=== PATIENT | male | born 1960 | race Caucasian/White ===

== ENCOUNTER 2018-12-24 08:25 | Emergency (ER) | payer OTHER ==
--- OUTSIDE RECORDS SUMMARY | 2018-12-24 08:36 | XMS REPORT | Continuity of Care Document ---
:1960 External Reference #:[id number] Author Name DEE Stephens (transmitted by agent of provider Yvonne Noe) Address [address] [facility] [address] [place] [address] Care Team Providers Name Role Phone Ranjan Garcia M.D. - Vascular Care Team Information Print Support Specialist Surgery Deborah Warner, Care Team Information Print Support Specialist Unavailable Problems Description No Information Available Social History Type Date Description Comments Sex Unknown Tobacco Use Start: Unknown Current Cigarette Smoker 1 Pack Daily ETOH Use Denies alcohol use Recreational Drug Use Denies Drug Use Tobacco Use Reviewed: 05/08/18 Patient is a current 1 ppd, patient in smoker, smokes every day the process of quitting Smoking Status Reviewed: 05/08/18 Patient is a current 1 ppd, patient in smoker, smokes every day the process of quitting Allergies, Adverse Reactions, Alerts Description No Known Drug Allergies Medications Active Medications SIG Qnty Indications Ordering Provider Date Metoprolol Succinate ER 1 by mouth 90tabs Joseph Oakley, 06/19/2018 every day 25mg Tablets ER 24HR Atorvastatin Calcium Take One Tablet Unknown 40mg By Mouth Every Tablets Day Plavix 1 by mouth Unknown 75mg Tablets every day Acetaminophen needed Unknown 500mg Tablets Bupropion Hydrochloride 1 by mouth Unknown ER (SR) twice a day 150mg Tablets ER 12HR Immunizations Description No Information Available Vital Signs Date Vital Result Comment 11/28/2018 2:45pm Height 66 inches 5'6" Weight 146.12 lb BMI (Body Mass Index) 23.6 kg/m2 BP Systolic Left Arm 104 mmHg BP Diastolic Left Arm 76 mmHg Heart Rate 88 /min 11/14/2018 3:37pm Height 66 inches 5'6" Weight 152.38 lb BMI (Body Mass Index) 24.6 kg/m2 BP Systolic Left Arm 100 mmHg BP Diastolic Left Arm 60 mmHg Heart Rate 72 /min Results Test Date Facility Test Result H/L Range Note Cbcadp 11/14/2018 [facility] WBC. 10.03 x10E3/ uL 4.2-12.0 1 [address] [place] [address] [phone] RBC 4.96 x10E6/uL 4.4-6.0 HGB 16.8 g/dL 13.8-18.0 HCT 51.0 % 39-52 MCV 103.0 fL High 80-98 MCH 33.9 pg High 27-33 MCHC 32.9 g/dL 32-36 RDW 13.6 % 11.2-15.2 PLT 223 x10E3/uL 135-420 MPV 8.1 fL 7.0-12.3 % Doyle 66.9 % 41.0-80.0 %Lym 24.2 % 10.0-45.2 %[place] 6.7 % 2.0-13.0 %Eos 1.7 % 0.0-8.0 %Baso 0.5 % 0.0-3.0 Neut 6.7 x10E3/uL 2.0-8.1 Lymp 2.4 x10E3/uL 0.6-3.1 [place] 0.7 x10E3/uL 0.0-1.0 Eos 0.2 x10E3/uL 0.0-0.6 Baso 0.1 x10E3/uL 0.0-0.2 BMP-Male 11/14/2018 [facility] Glucose 96 mg/dL 74-106 2 [address] [place] [address] [phone] BUN 11 mg/dL 6-20 Creatinine 0.8 mg/dL 0.5-1.3 Sodium 141 mmol/L 136-145 Potassium 4.1 mmol/L 3.5-5.3 Chloride 109 mmol/L High 98-107 Co2 26 mEq/L 20-31 Anion Gap 6 mmol/L Low 7-16 eGFR-male 99 mL/m/1.73m - eGFR-Aa male 120 mL/m/1.73m - 3 Calcium 9.1 mg/dL 8.9-10.5 Laboratory test 11/14/2018 [facility] TSH3 0.773 mIU/ml 0.350-5.500 finding [address] [place] [address] [phone] Free T4 1.02 ng/dL 0.89-1.80 Venipuncture DONE - 1 Labprint and transmitted at 424 11/14/18 kk 2 [facility] and transmitted 11.14.18 5:37pm bab [place] Diabetes [employer] (ADA) Recommended Range is 65-99 mg/dL 3 Normal Kidney Function or Mild Disease GFR >59 mL/min/1.73m2 Chronic Kidney Disease GFR 15-59 mL/min/1.73m2 Renal Failure GFR <15 mL/min/1.73m2 Procedures Date Code Description Status 11/27/2018 00573 ECG Physician Review & Interpretation, Patient Demand Completed 11/26/2018 55324 ECG Physician Review & Interpretation, Patient Demand Completed 11/14/2018 68569 EEG Recording,Connection And Disconnection Completed 11/14/2018 35965 EEG Recording,Connection And Disconnection Completed 11/14/2018 52066 Electrocardiogram Complete Completed 06/13/2018 41789 ECG Physician Review & Interpretation, Patient Demand Completed 06/11/2018 58058 ECG Physician Review & Interpretation, Patient Demand Completed Medical Devices Description No Information Available Encounters Type Date Location Provider Dx Diagnosis Office Visit 11/28/2018 CMP Cardiology AT [facility] Wilbert, R42 Dizziness and 3:00p [place] [employer]OWBOAT CAPTAIN-C giddiness R00.2 Palpitations I49.1 Atrial premature depolarization R00.0 Tachycardia, unspecified [facility] 11[facility]14[facility]2018 3[facility] [place] Wilbert, [employer] CAPTAIN-C giddiness R00.2 Palpitations I25.10 Athscl heart disease of [place] coronary artery w/o ang pctrs I49.1 Atrial premature depolarization Office Visit 06/19/2018 10:45a [facility] AT [facility] I25.10 Athscl heart Kisha Oakley MD disease of [place] coronary artery w/o ang pctrs I49.1 Atrial premature depolarization R42 Dizziness and giddiness Assessments Date Code Description Provider 11/28/2018 R42 Dizziness and giddiness Carleen AtkinsSANDY 11/28/2018 R00.2 Palpitations [facility]/28/2018 I49.1 Atrial premature depolarization Carleen AtkinsDEE 11/28/2018 R00.0 Tachycardia, unspecified Carleen AtkinsSANDY 11/27/2018 R42 Dizziness and giddiness Joseph Oakley MD 11/27/2018 R00.2 Palpitations Joseph Oakley MD 11/26/2018 R42 Dizziness and giddiness Joseph Oakley MD 11/26/2018 R00.2 Palpitations Joseph Oakley MD 11/14/2018 R42 Dizziness and giddiness Joseph Oakley MD 11/14/2018 R42 Dizziness and giddiness Carleendinh AliceaDEE danielle 11/14/2018 R42 Dizziness and giddiness Joseph Oakley MD 11/14/2018 R00.2 Palpitations Joseph Oakley MD 11/14/2018 R00.2 Palpitations Carleendinh AliceaSANDY danielleColten 11/14/2018 I25.10 Atherosclerotic heart disease of [place] Joseph Oakley MD coronary artery without angina pectoris 11/14/2018 I25.10 Atherosclerotic heart disease of [place] Carleen AnibalDEE Del Castillo coronary artery with 11/14/2018 I49.1 Atrial premature depolarization Joseph Oakley MD 11/14/2018 I49.1 Atrial premature depolarization Carleen AliceaDEE danielle 11/14/2018 R00.2 Palpitations [facility] 11/14/2018 R42 Dizziness and giddiness [facility] 11/14/2018 R00.2 Palpitations [facility] 11/14/2018 R42 Dizziness and giddiness [facility] 06/19/2018 I25.10 Atherosclerotic heart disease of [place] Joseph Oakley MD coronary artery with 06/19/2018 I49.1 Atrial premature depolarization Joseph Oakley MD 06/19/2018 R42 Dizziness and giddiness Joseph Oakley MD 06/13/2018 I25.10 Atherosclerotic heart disease of [place] Joseph Oakley MD coronary artery with 06/13/2018 R06.02 Shortness of breath Joseph Oakley MD 06/13/2018 R42 Dizziness and giddiness Joseph Oakley MD 06/11/2018 I25.10 Atherosclerotic heart disease of [place] Joseph Oakley MD coronary artery without angina pectoris 06/11/2018 R06.02 Shortness of breath Joseph Oakley MD 06/11/2018 R42 Dizziness and giddiness Joseph Oakley MD Plan of Treatment Future Appointment(s):03/02/2019 4:00 pm - Joseph Oakley MD at [facility] Cardiology AT Fqhewhrt32/16/2019 - Carleen Atkins, TOWBOAT CAPTAIN-CR42 Dizziness and bfemfeapjY55.2 CpjvyjtvwhoaS51.1 Atrial premature gryzubrguadqavP84.0 Tachycardia, unspecifiedFollow up:3 month follow up with Dr Oakley or call to be seen sooner if needed Functional Status Description No Information Available Mental Status Description No Information Available Referrals Description No Information Available
[2018-12-24 08:40] VITALS: BP 103/64
--- NOTE | 2018-12-24 09:36 | UC ---
Respiratory Complaint HPI - HPI Summary HPI Summary: 58 yo with COPD, continued smoking, with one day history of chills and malaise, with increased cough without production. He does not use albuterol regularly, uses advair about once per day. Chest sore at times, relieves with coughing, mild dyspnea. Hx of CAD with past stent in addition to having a loose left knee joint prosthesis, pending surgical replacement this winter. - History of Current Complaint Chief Complaint: UCGeneralIllness Stated Complaint: THROAT,COUGH,CONGESTION Time Seen by Provider: 12/24/18 09:26 Hx Obtained From: Patient Onset/Duration: Sudden Onset, Lasting Days - 2 Timing: Intermittent Episodes Severity Initially: Moderate Severity Currently: Moderate Pain Intensity: 0 Character: Cough: Productive Aggravating Factors: Exertion Alleviating Factors: Upright Position, Other - not using albuterol and underusing advair Associated Signs And Symptoms: Positive: Dyspnea, URI, Hoarseness - Risk Factors Pulmonary Embolism Risk Factors: Smoking Cardiac Risk Factors: Smoking, CAD Pseudomonas Risk Factors: Chronic Lung Disease Tuberculosis Risk Factors: Negative - Allergies/Home Medications Allergies/Adverse Reactions: Allergies Allergy/AdvReac Type Severity Reaction Status Date / Time No Known Allergies Allergy Verified 12/24/18 08:37 Home Medications: Home Medications Albuterol HFA INHALER* [Ventolin HFA Inhaler*] 2 puff INH DAILY PRN 12/24/18 [ History Confirmed 12/24/18] Combivent Mdi 1 puff INH EVERY OTHER DAY PRN 12/24/18 [History Confirmed ] Metoprolol Succinate XL TAB* [Toprol XL TAB*] 25 mg PO DAILY 12/24/18 [History Confirmed 12/24/18] PMH/Surg Hx/FS Hx/Imm Hx Cardiovascular History: Cardiac Disease Respiratory History: COPD - Surgical History Surgical History: Yes Surgery Procedure, Year, and Place: CARDIAC STENT-2001. LEFT TOTAL KNEE REPLACEMENT. CHOLECYSTECTOMY - Family History Known Family History: Positive: Non-Contributory - Social History Occupation: Employed Full-time Lives: With Family Alcohol Use: None Substance Use Type: None Smoking Status (MU): Heavy Every Day Tobacco Smoker Type: Cigarettes Amount Used/How Often: 1.5 PPD Length of Time of Smoking/Using Tobacco: 42 YRS Have You Smoked in the Last Year: Yes Household Exposure Type: Cigarettes Review of Systems All Other Systems Reviewed And Are Negative: Yes Constitutional: Positive: Chills, Fatigue Eyes: Positive: Negative ENT: Positive: Sore Throat Respiratory: Positive: Shortness Of Breath, Cough Cardiovascular: Negative: Palpitations, Chest Pain Gastrointestinal: Positive: Negative. Negative: Vomiting, Nausea Genitourinary: Positive: Negative Motor: Positive: Other - chronic left knee pain, uses occasional tramadol for relief Musculoskeletal: Positive: Arthralgia Neurological: Positive: Negative Is Patient Immunocompromised?: No Physical Exam Triage Information Reviewed: Yes Appearance: No Pain Distress, Ill-Appearing - looks chronically unwell, not septic, alert, speaks easily Vital Signs: Initial Vital Signs Temp 99 F 12/24/18 08:35 Pulse 85 12/24/18 08:35 Resp 16 12/24/18 08:35 BP 103/64 12/24/18 08:35 Pulse Ox 97 12/24/18 08:35 Eyes: Positive: Conjunctiva Clear ENT: Positive: Pharynx normal, TMs normal Neck: Positive: Supple, Nontender, No Lymphadenopathy Respiratory: Positive: Decreased breath sounds, Expiration - prolonged, no wheezin. Negative: Crackles, Rhonchi, Stridor Cardiovascular: Positive: RRR, No Murmur Abdomen Description: Positive: Nontender, No Organomegaly, Soft Musculoskeletal: Positive: No Edema Neurological Exam: Normal Neurological: Positive: Alert Psychological Exam: Normal Skin Exam: Normal Respiratory Course/Dx - Course Course Of Treatment: Begin doxycycline for treatment of copd exacerbation, increase inhaler use. - Differential Dx/Diagnosis Differential Diagnosis/HQI/PQRI: Asthma, Bronchitis, Exacerbation Of COPD, Laryngitis, Lower Resp Infection Provider Diagnosis: COPD exacerbation Discharge ED - Sign-Out/Discharge Documenting (check all that apply): Patient Departure All imaging exams completed and their final reports reviewed: No Studies - Discharge Plan Condition: Stable Disposition: HOME Prescriptions: DOXYcycline CAP(*) [DOXYcycline 100MG CAP(*)] 100 mg PO BID #20 cap Patient Education Materials: COPD (Chronic Obstructive Pulmonary Disease) (ED) Referrals: Allison Warner NP [Primary Care Provider] - Additional Instructions: Begin doxycyline for treatment of COPD exacerbation. You can take with food, but not within 2 hours of dairy products. Increase advair use to twice daily and use albuterol as needed for shortness of breath. If you worsen, do not see a response to antibiotic treatment in 2 to 3 days, develop a high fever of worsening shortness of breath, please follow up iwith your primary care or here or in the ER - Billing Disposition and Condition Condition: STABLE Disposition: Home
== END 2018-12-24 09:50 | disposition home or self-care (01) ==
LOC: UCCORT 08:25
DX: J44.1 Chronic obstructive pulmonary disease with (acute) exacerbation (principal); F17.210 Nicotine dependence, cigarettes, uncomplicated; I25.10 Atherosclerotic heart disease of native coronary artery without angina pectoris
CPT/HCPCS: 99212; G0463

== ENCOUNTER 2019-02-25 09:51 | Inpatient (IN) | payer OTHER ==
--- OUTSIDE RECORDS SUMMARY | 2019-02-25 09:56 | XMS REPORT | Continuity of Care Document ---
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 Active Problems Provider Date Migraine without aura Deborah Warner FNP Onset: 07/01/2016 Note: Document: 12/30/15 - CT Brain Document: 01/06/16 - Followup: Headache Document: 06/08/16 - Consult Neurology Postconcussion syndrome Deborah Warner FNP Onset: 07/01/2016 Pure hypercholesterolemia Jasmin Roberts ANP Onset: 08/01/2012 Backache Anjelica Knott FNP Onset: 10/14/2012 Chronic obstructive lung disease Anjelica Knott FNP Onset: 03/21/2012 Corns and callosities Deborah Warner FNP Onset: 03/29/2017 Tobacco user Deborah Warner FNP Onset: 04/09/2017 Sinus tachycardia Deborah Warner FNP Onset: 12/04/2018 Note: Document: 11/28/18 - Consult Cardiology - Carleen Anglin Social History Type Date Description Comments Sex Unknown Cigarette Use Pack Years - 35 Tobacco Use Start: Unknown Current Cigarette Smoker 1 Pack Daily Smoking Status Reviewed: 01/22/19 Current Cigarette Smoker 1 Pack Daily ETOH Use Denies alcohol use Tobacco Use Start: Unknown Heavy tobacco smoker 30+ pack year history (more than 10 - currently 1 PPD cigarettes/day) Recreational Drug Use Denies Drug Use Allergies, Adverse Reactions, Alerts Active Allergies Reaction Severity Comments Date Lidocaine Severe 02/25/2018 Inactive Allergies NKDA 04/03/2010 Medications Active Medications SIG Qnty Indications Ordering Date Provider Atorvastatin Calcium Take One Tablet By [facility] 03/17/2018 Mouth Every Day Jenpatelferneel, 40mg Tablets IN STORE REPRESENTATIVE Proair HFA inhale two puffs 17gm J44.9 [facility], 01/06/2016 108(90Base) by mouth every 4 Jenniferleigh, mcg/Act Aerosol hours as needed IN STORE REPRESENTATIVE Albuterol Sulfate nebulized every 6 2units J44.9 [facility], 05/09/2012 hours as needed Saryferneel, (2.5mg/3ML) 0.083% IN STORE REPRESENTATIVE Nebulizer M54.5 F17.200 Combivent Respimat 1 inhalation twice a 12gm Deborah Warner, day IN STORE REPRESENTATIVE 20-100mcg/Act Aerosol Icy Hot ue as needed Unknown 5% Patches Metoprolol Succinate ER one PO qd Joseph Oakley MD 25mg Tablets ER 24HR History Medications Wellbutrin SR take one tablet 60tabs Deborah Warner, 11/25/2018 - 150mg by mouth once IN STORE REPRESENTATIVE 01/22/2019 Tablets ER 12HR daily for 3 days then increase to twice a day Immunizations CPT Code Status Date Vaccine Lot # [id number] Given 01/23/2017 Influenza Virus Vaccine, Quadrivalent, Slit Virus, [id number] Im Use 61847 Given 01/23/2017 Pneumococcal Conjugate Vaccine 13 Valent For [id number] Intramuscular Use 15727 Given 12/23/2015 Influenza Virus Vaccine Split Virus Use For Individual 3Yr Older 30653 Given 11/09/2015 Pneumovax Injection [id number] 73111 Given 07/22/2013 Tdap injection Vital Signs Date Vital Result Comment 01/22/2019 3:25pm BP Systolic 116 mmHg BP Diastolic 68 mmHg Body Temperature 97.4 F Heart Rate 83 /min Respiratory Rate 17 /min Height 66.15 inches 5'6.15" Weight 150.25 lb BMI (Body Mass Index) 24.1 kg/m2 BSA (Body Surface Area) 1.77 m2 [place] body weight in kilograms 65 kg O2 % BldC Oximetry 92 % 06/30/2018 2:07pm BP Systolic Sitting Left Arm 116 mmHg BP Diastolic Sitting Left Arm 74 mmHg Heart Rate 82 /min Respiratory Rate 18 /min Height 66.5 inches 5'6.50" Weight 157.00 lb BMI (Body Mass Index) 25.0 kg/m2 BSA (Body Surface Area) 1.81 m2 [place] body weight in kilograms 66 kg Results Description No Information Available Procedures Date Code Description Status 05/16/2016 20317903 Colonoscopy Completed Medical Devices Description No Information Available Encounters Description No Information Available Assessments Date Code Description Provider 01/22/2019 G31.84 Mild cognitive impairment, so stated Deborah Warner FNP 01/22/2019 Z23 Encounter for immunization Deborah Warner FNP Plan of Treatment 01/22/2019 - Deborah Warner FNPG31.84 Mild cognitive impairment, so statedComments:MMSE within normal limits and normal clock draw is re-assuring, however with strong family history afull evaluation is warranted.Referral:No Doctor [id number] Encounter for immunizationComments:yearly influenza immunization given today Functional Status Functional Condition Comment Date Status Independent with all ADL's Active Glasses Active Independent with all IADL's Active Mental Status Description No Information Available Referrals Refer to Reason for Referral Status Appt Date concern for developing dementia - strong family Hx Created w/PGF, Father and paternal uncle all with alzheimers in their mid to late 60's.
--- NOTE | 2019-02-25 10:02 | ED ---
HPI Chest Pain - HPI Summary HPI Summary: Pt is a 58 y/o M presenting to the ED brought in by EMS for chest pain. STEMI CALLED 0929 with 9 minute ETA by EMS. Pt arrived at 0950. EMS gave 324 ASA and the EKG showed ST elevations in leads II, III, and aVF. Pt states his chest pain started about an hour [employer], and is accompanied by SOB. Hx of cardiac stents , was on Plavix briefly, now pt takes 1mg ASA/day. He has been taking Wellbutrin for the last week, and has gone two days without a cigarette. Pt has a nicotine patch on left arm. Dr. 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 - History of Current Complaint Hx Obtained From: Patient, EMS Onset/Duration: Started Hours Ago, Still Present Timing: Constant, Lasting Hours Initial Severity: Moderate Current Severity: Moderate Chest Pain Location: Mid Sternal Aggravating Factor(s): Nothing Alleviating Factor(s): Nothing Associated Signs and Symptoms: Positive: Chest Pain, Shortness of Breath - Allergy/Home Medications Allergies/Adverse Reactions: Allergies Allergy/AdvReac Type Severity Reaction Status Date / Time No Known Allergies Allergy Verified 12/24/18 08:37 PMH/Surg Hx/FS Hx/Imm Hx Previously Healthy: Yes Endocrine/Hematology History: Reports: Hx Anticoagulant Therapy - remote plavix Denies: Hx Diabetes, Hx Thyroid Disease Cardiovascular History: Reports: Hx Angioplasty - stent placed 1999 in [place] Denies: Hx Hypertension Respiratory History: Reports: Hx Chronic Obstructive Pulmonary Disease (COPD) Denies: Hx Asthma GI History: Denies: Hx Ulcer Musculoskeletal History: Reports: Hx Back Problems - chronic back pain, Hx Gout Sensory History: Reports: Hx Contacts or Glasses Opthamlomology History: Reports: Hx Contacts or Glasses Neurological History: Reports: Hx Headaches - Surgical History Surgery Procedure, Year, and Place: CARDIAC STENT-2001. LEFT TOTAL KNEE REPLACEMENT. CHOLECYSTECTOMY Hx Anesthesia Reactions: No Infectious Disease History: Denies: Hx Clostridium Difficile, Hx Hepatitis, Hx Human Immunodeficiency Virus (HIV), Hx of Known/Suspected MRSA, Hx Shingles, Hx Tuberculosis, Hx Known/ Suspected VRE, Hx Known/Suspected VRSA, History Other Infectious Disease, Traveled Outside the [place] in Last 30 Days - Family History Known Family History: Negative: Diabetes - Social History Alcohol Use: None Hx Substance Use: No Substance Use Type: Reports: None Hx Tobacco Use: Yes - has not smoked in 2 days as of 02/25/19 Smoking Status (MU): Heavy Every Day Tobacco Smoker Type: Cigarettes Amount Used/How Often: 1.5 PPD Length of Time of Smoking/Using Tobacco: 42 YRS Have You Smoked in the Last Year: Yes Review of Systems Constitutional: Negative Positive: Chest Pain Positive: Shortness Of Breath All Other Systems Reviewed And Are Negative: Yes Physical Exam - Summary Physical Exam Summary: Vital Signs Reviewed: Yes A+Ox3, no distress Eyes: Conjunctiva Clear ENT: Hearing grossly normal neck: supple Respiratory: Positive: No respiratory distress, No accessory muscle use Cardiovascular: skin color reflect adequate perfusion Musculoskeletal Exam: ANAYA x 4 without difficulty Neurological: Positive: Alert, ambulatory without difficulty Psychological: Positive: Normal Response To examiner Skin: Positive: no rash, no ecchymosis Triage Information Reviewed: Yes Vital Signs Reviewed: Yes Procedures - Sedation Patient Received Moderate/Deep Sedation with Procedure: No Chest Pain Course/Dx - Course Course Of Treatment: Patient is a 58-year-old gentleman who presents by EMS with an ST elevation LA. EKG prehospital consistent with inferior wall LA. Patient states pain started 1 hour prior to arrival was shortness of breath. Patient was given aspirin by EMS but no other meds given. No IV established prior to arrival. Patient reports discomfort. Attending and team were present on patient arrival. Patient was registered in the department and sent directly to the Software Trainer. - Diagnoses Provider Diagnoses: STEMI (ST elevation myocardial infarction) Discharge ED - Sign-Out/Discharge Documenting (check all that apply): Patient Departure - Discharge Plan Condition: Stable Disposition: ADMITTED TO [facility] - Billing Disposition and Condition Condition: STABLE Disposition: Admitted to [facility] - Attestation Statements Document Initiated by Scribe: Yes Documenting Scribe: Claribel Betancur Provider For Whom Scribe is Documenting (Include Credential): Brittanie Bal MD. Scribe Attestation: Claribel Torrez, tyed for Brittanie Bal MD. on 02/25/19 at 1003. Scribe Documentation Reviewed: Yes Provider Attestation: The documentation as recorded by the scribeClaribel accurately reflects the service I personally performed and the decisions made by Brittanie weaver MD. Status of Scribe Document: Viewed
[2019-02-25] MEDS ORDERED: nitroGLYCERIN DRIP* 25,000 MCG/250 ML BTL ONE (10:14)
[2019-02-25] MEDS ORDERED: Ticagrelor* 90 MG TAB PO ONE (10:19)
[2019-02-25] MEDS ORDERED: fentaNYL* 50 MCG/ML 2 ML VIAL (100 MCG VIAL) ONE (10:22)
[2019-02-25 10:33] LABS: ABS Basophils 0.1 10^3/ul (0-0.2); ABS Eosinophils 0.2 10^3/ul (0-0.6); ABS Lymphocytes 2.1 10^3/ul (1.0-4.8); ABS Monocytes 0.8 10^3/ul (0-0.8); ABS Neutrophils 9.2 10^3/ul (1.5-7.7); Eosinophil % 1.3 %; Hematocrit 54 % (42-52); Hemoglobin 18.2 g/dL (14.0-18.0); Lymphocyte % 16.9 %; Mean Corpuscular HGB Conc 34 g/dL (31-36); Mean Corpuscular Hemoglobin 34 pg (27-31); Mean Corpuscular Volume 103 fL (80-94); Mean Platelet Volume 8.9 fL (7.4-10.4); Platelet Count 194 10^3/uL (150-450); Red Blood Count 5.29 10^6 /uL (4.18-5.48); Red Cell Distribution Width 14 % (10-15); White Blood Count 12.3 10^3/uL (3.5-10.8)
[2019-02-25 10:38] LABS: Activated Partial Thrombo Time 44.8 seconds (26.0-38.0); INR 0.91 (0.82-1.09)
[2019-02-25 11:03] LABS: CO2 Carbon Dioxide 18 mmol/L (22-32); Chloride 106 mmol/L (101-111); Sodium 134 mmol/L (135-145)
[2019-02-25] MEDS ORDERED: NitroPRUSSide* 25 MG/ML 2 ML VIAL IV ONE (11:08)
[2019-02-25] MEDS ORDERED: Norepinephrine VIAL* 1 MG/ML 4 ML VIAL ONE (11:08)
[2019-02-25 11:09] LABS: BUN/Creatinine Ratio 9.9 (8-20); Blood Urea Nitrogen 10 mg/dL (6-24); EGFR African American 91.5 (>60); EGFR Non-African American 75.6 (>60); Glucose 103 mg/dL (70-100)
[2019-02-25 11:10] LABS: Anion Gap 10 mmol/L (2-11)
[2019-02-25 11:20] LABS: Troponin I 0.03 ng/mL (<0.04)
[2019-02-25] MEDS ORDERED: Nitroglycerin TAB 0.4 MG* 0.4 MG TAB SL PRN (11:52)
[2019-02-25] MEDS ORDERED: Albuterol HFA INHALER* 8 gm MDI INH PRN (11:57)
[2019-02-25] MEDS ORDERED: Albuterol 2.5 MG/3 ML NEB.SOL* (0.083%) INH PRN (11:57)
[2019-02-25] MEDS ORDERED: Metoprolol Tartrate TAB* 25 MG PO SCH (12:00)
[2019-02-25] MEDS: Nicotine PATCH 21 MG/24 HR* PATCH TRANSDERM SCH (12:24)
[2019-02-25] MEDS: NS 0.9% 1000 ML** 1,000 ML IV SCH ×2 (12:25→14:26)
--- NOTE | 2019-02-25 12:33 | HP ---
HISTORY AND PHYSICAL: DATE OF ADMISSION: 02/25/19 ATTENDING PHYSICIAN: Dr. Paula Santamaria, Cardiology.* (DICTATED BY MAYE YANEZ NP) PRIMARY CARE PROVIDER: SANDY King, with [facility] in [place], [place]. PRIMARY FIBER OPTICS SUPERVISOR: None. CHIEF COMPLAINT: Sudden onset substernal chest pain radiating down left arm, started 1 hour prior to arrival. HISTORY OF PRESENT ILLNESS: This is a pleasant 58-year-old male patient with a notable history of coronary artery disease with prior intervention to LAD distantly in 2001, ongoing tobacco abuse, hyperlipidemia. The patient states that he has been in his usual state of health. He has been noticing progressive dyspnea on exertion over the course of the last 6 months. He contributed this to his ongoing tobacco use. Apparently, he smokes a pack and a half a day; however, 2 days ago, he decided that because of his dyspnea on exertion, he would start reducing his tobacco use. This morning around 9 a.m. 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 The patient states that he did not have nitroglycerin to use. He went into his place of employment office and asked them to call 911. EMS evaluated the patient. He had an abnormal ECG consistent with an inferior STEMI. He was given 325 mg of aspirin and taken to [facility] where he was seen emergently in the emergency department by Dr. Paula Santamaria. Repeat ECG at that time revealed ST segment elevation in inferior leads with reciprocal change in V1 through V3, aVR, and aVL. The patient was [place] urgently [place] where he underwent a drug-eluting stent placement to his dominant left circumflex. He is currently chest pain free and was just transferred to the ICU. He denies any other recent hospitalizations or symptoms at this time. He states that his last ischemic evaluation prior to presentation today was remotely in 2004. Last echocardiogram unknown. PAST MEDICAL HISTORY: 1. Coronary artery disease. 2. Ongoing tobacco abuse. 3. Hyperlipidemia. 4. 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 5. COPD. 6. Diverticulitis. PAST SURGICAL HISTORY: 1. Prior remote LAD stenting. 2. Left knee surgery. HOME MEDICATIONS: According to his primary physician: 1. Lipitor 40 mg p.o. q.h.s. 2. ProAir as directed. 3. Albuterol as directed. 4. Metoprolol 25 mg a day. 5. Combivent as directed. ALLERGIES: Listed include LIDOCAINE, unknown reaction. FAMILY HISTORY: Noncontributory. SOCIAL HISTORY: The patient is , lives at home with his . 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 Reports smoking a pack and a half of cigarettes a day for the last 30 plus years. Denies alcohol use or illegal drug use. REVIEW OF SYSTEMS: All systems have been reviewed and otherwise negative except as above mentioned in the HPI. PHYSICAL EXAMINATION GENERAL: The patient is status post left heart catheterization, resting in bed in the ICU, appears in no apparent distress. He is alert and oriented x3, cooperative with the examination. HEENT: Head is atraumatic, normocephalic. Oral mucosa is moist. Tongue is midline. NECK: Supple. Trachea midline. No JVD. No carotid bruits. LUNGS: Auscultated posteriorly. No evidence of adventitious breath sounds. Respirations are unlabored. CARDIAC: Normal S1, S2. Regular rate and rhythm. No murmur, rub, or gallop noted. /GI: Abdomen is soft, nontender, nondistended. Normoactive bowel sounds x4. No hepatomegaly. EXTREMITIES: Right radial access has TR band placed and is in an immobilizer. Left radial pulse 3+. Bilateral dorsalis pedis pulses 2+. SKIN: Intact. No evidence of jaundice, rashes, or ecchymosis appreciated. DIAGNOSTIC STUDIES/LAB DATA: White count 12.3, hemoglobin 18.2, hematocrit 54 , platelets 194. INR 0.91. Sodium 134, potassium to be determined, creatinine 1.01. Troponin #1 is 0.03. ECG obtained by EMS: Sinus rhythm, rate [address] segment elevation in lead II , III, aVF with reciprocal changes noted in V1 through V3, aVR and aVL. ASSESSMENT AND PLAN: 1. Status post inferior ST-elevation myocardial infarction. The patient underwent successful drug-eluting stent placement to dominant left circumflex. The patient is chest pain free at this time. He presented within 1 hour of onset of symptoms. We will cycle cardiac enzymes. We will update echo in the next 24 to 48 hours. The patient is to be admitted to the ICU for close observation. He is on aspirin 81 mg a day in combination with Brilinta 90 mg p.o. b.i.d. He will need uninterrupted dual antiplatelet therapy for 12 months ' time given presentation with ST-elevation myocardial infarction. He was historically on metoprolol therapy and Lipitor therapy. We will initiate high- intensity statin therapy and follow closely. 2. History of ongoing tobacco abuse. Reinforced importance of smoking cessation for the patient's overall cardiovascular health. The patient seems engaged and willing to quit. We will prescribe nicotine patch. 3. History of hyperlipidemia. Goal LDL less than 70 due to above. On Lipitor 40 mg p.o. q.h.s. at home. We will increase dose to 80 mg p.o. q.h.s. We will need repeat fasting lipid panel and liver function tests in 4 to 6 weeks' time. 4. History of hypertension. Historically, on metoprolol therapy. Goal blood pressure less than 130/80 given age. 5. Disposition: Pending course. Dr. Paula Santamaria has personally seen and examined the patient and agrees with the above assessment and plan. MAYE YANEZ NP [id number]/[facility] #: [id number] REZA
[2019-02-25 12:55] LABS: Creatine Kinase 1066 U/L (10-223); Potassium 4.7 mmol/L (3.5-5.0)
[2019-02-25 13:00] LABS: CKMB ng/mL 240.9 ng/mL (0.6-6.3)
[2019-02-25 13:03] LABS: Troponin I 15.12 ng/mL (<0.04)
[2019-02-25] MEDS ORDERED: NS 0.9% 500 ML* 500 ML IV ONE (14:05)
[2019-02-25] MEDS ORDERED: Magnesium Sulfate 1 GM IV* 1 GM/100 ML BAG IV ONE (15:41)
[2019-02-25] MEDS ORDERED: NS 0.9% 500 ML* @ Wide Open(Bolus) 500ml IV ONE (16:00)
[2019-02-25] MEDS ORDERED: Norepinephrine 16MCG/ML IVPRE* 4,000 MCG/250 ML BAG IV ONE (16:55)
[2019-02-25] MEDS: Atorvastatin* 80 MG TAB PO SCH (17:10)
[2019-02-25 18:29] LABS: Creatine Kinase 1693 U/L (10-223)
[2019-02-25 18:35] LABS: Troponin I 60.27 ng/mL (<0.04)
[2019-02-25 18:48] LABS: CKMB ng/mL > 300.0 ng/mL (0.6-6.3)
[2019-02-25] MEDS: Norepinephrine 16MCG/ML IVPRE* 4,000 MCG/250 ML BAG IV SCH (19:00)
[2019-02-25] MEDS: Albuterol/Ipratropium NEB.SOL* Albuterol 2.5 MG/Ipratropium 0.5 MG 3 ML INH SCH (19:18)
[2019-02-25] MEDS: Ticagrelor* 90 MG TAB PO SCH (20:36)
[2019-02-25] MEDS: Nicotine Patch Removal NOTE PATCH OFF SCH (21:17)
[2019-02-25] MEDS ORDERED: Melatonin 3 MG TAB PO PRN (23:31)
[2019-02-26 01:14] LABS: CKMB ng/mL 197.4 ng/mL (0.6-6.3); Troponin I 19.16 ng/mL (<0.04)
[2019-02-26 01:21] LABS: Creatine Kinase 965 U/L (10-223)
[2019-02-26] MEDS: Norepinephrine 16MCG/ML IVPRE* 4,000 MCG/250 ML BAG IV SCH (04:09)
[2019-02-26 06:05] LABS: BUN/Creatinine Ratio 10.1 (8-20); Calcium 8.6 mg/dL (8.6-10.3); EGFR African American 121.5 (>60); EGFR Non-African American 100.4 (>60); Potassium 4.1 mmol/L (3.5-5.0)
[2019-02-26] MEDS: Aspirin 81 mg CHEW TAB* 81 MG TAB.CHEW PO SCH (07:43)
[2019-02-26] MEDS: Ticagrelor* 90 MG TAB PO SCH ×2 (07:43→21:30)
[2019-02-26] MEDS: Nicotine PATCH 21 MG/24 HR* PATCH TRANSDERM SCH (07:43)
[2019-02-26] MEDS: Albuterol/Ipratropium NEB.SOL* Albuterol 2.5 MG/Ipratropium 0.5 MG 3 ML INH SCH ×2 (08:00→22:24)
--- NOTE | 2019-02-26 09:15 | PN ---
<Vanessa Ballesteros - Last Filed: 02/26/19 09:07> Subjective Date of Service: 02/26/19 - s/p Inferior STEMI with PCI to dominant Lcx. Interval History: Patient developed hypotension last night. Levophed was started but has since been discontinued. He is asymptomatic. Denies dizziness, lightheadedness, SOB, chest pain or palpitations. Denies right radial access site pain. Manual BP was 110/78, automatic machine recorded SBP 83. It appears automated BP is not accurate. Medications Active Medications: Albuterol (Ventolin 2.5 Mg/3 Ml Neb.Chloé*) 2.5 mg INH Q6H PRN PRN Reason: SOB/WHEEZING Albuterol (Ventolin Hfa Inhaler*) 2 puff INH Q4HR PRN PRN Reason: SOB/WHEEZING Albuterol/Ipratropium (Duoneb (Albuterol 2.5 Mg/Ipratropium 0.5 Mg)) 1 neb INH RT.BID [facility]; Protocol Last Admin: 02/26/19 08:00 Dose: 1 neb Aspirin (Aspirin 81 Mg Chew Tab*) 81 mg PO DAILY [facility] Last Admin: 02/26/19 07:43 Dose: 81 mg Atorvastatin Calcium (Lipitor*) 80 mg PO 1700 [facility] Last Admin: 02/25/19 17:10 Dose: 80 mg Norepinephrine Bitartrate (Levophed 16 Mcg/Ml Premix*) 4,000 mcg in 250 mls @ 0 mls/hr IV PER RATE [facility]; Protocol Last Admin: 02/26/19 04:09 Dose: 15 mls/hr Melatonin (Melatonin) 3 mg PO BEDTIME PRN PRN Reason: INSOMNIA Last Admin: 02/26/19 00:17 Dose: 3 mg Nicotine (Nicotine Patch 21 Mg/24 Hr*) 1 patch TRANSDERM DAILY [facility] Last Admin: 02/26/19 07:43 Dose: 1 patch Nitroglycerin (Nitroglycerin Tab 0.4 Mg*) 0.4 mg SL Q5M PRN PRN Reason: ANGINA Pharmacy Profile Note (Nicotine Patch Removal Note*) 1 note PATCH OFF 2100 [facility] Last Admin: 02/25/19 21:17 Dose: 1 note Ticagrelor (Brilinta*) 90 mg PO BID [facility] Last Admin: 02/26/19 07:43 Dose: 90 mg Objective Vital Signs: Temp Pulse Resp BP Pulse Ox 99.5 F 70 19 104/66 97 02/26/19 07:59 02/26/19 08:01 02/26/19 08:01 02/26/19 07:46 02/26/19 08:01 Oxygen Devices in Use Now: None Appearance: sitting upright in bed, NAD, A+ O X3 Ears/Nose/Mouth/Throat: NL Teeth, Lips, Gums, Clear Oropharnyx, Mucous Membranes Moist Neck: NL Appearance and Movements; NL JVP, Trachea Midline Respiratory: Symmetrical Chest Expansion and Respiratory Effort, Clear to Auscultation Cardiovascular: - - Normal S1, S2. RRR no murmur, gallop or rub. Abdominal: NL Sounds; No Tenderness; No Distention, No Hepatosplenomegaly Extremities: No Edema, - - right radial access site is intact, non tender with palpation, no palpable thrill, no hematoma. 3+ right radial pulse. Neurological: Alert and Oriented x 3 Lines/Tubes/Other Access: Clean, Dry and Intact Peripheral IV Laboratory Results: 02/25/19 10:12 02/26/19 05:00 INR (Anticoag Therapy) 0.91 (0.82-1.09) 02/25/19 10:12 APTT 44.8 seconds (26.0-38.0) H 02/25/19 10:12 CK-MB (CK-2) 197.4 ng/mL (0.6-6.3) H 02/26/19 00:00 02/25/19 02/25/19 02/25/19 10:12 12:29 17:50 Troponin I 0.03 15.12 H* 60.27 H* 02/26/19 00:00 Troponin I 19.16 H* Laboratory Results - last 24 hr 02/25/19 02/25/19 02/25/19 10:12 10:12 10:12 WBC 12.3 H RBC 5.29 Hgb 18.2 H Hct 54 H MCV 103 H MCH 34 H MCHC 34 RDW 14 Plt Count 194 MPV 8.9 Neut % (Auto) 74.4 Lymph % (Auto) 16.9 Mccreary % (Auto) 6.7 Eos % (Auto) 1.3 Baso % (Auto) 0.7 Absolute Neuts (auto) 9.2 H Absolute Lymphs (auto) 2.1 Absolute Monos (auto) 0.8 Absolute Eos (auto) 0.2 Absolute Basos (auto) 0.1 Absolute Nucleated RBC 0.0 Nucleated RBC % 0.0 INR (Anticoag Therapy) 0.91 APTT 44.8 H POC Activ Clotting Time Sodium 134 L Potassium TNP Chloride 106 Carbon Dioxide 18 L Anion Gap 10 BUN 10 Creatinine 1.01 Est GFR ( Amer) 91.5 Est GFR (Non-Af Amer) 75.6 BUN/Creatinine Ratio 9.9 Glucose 103 H Calcium 10.0 Magnesium Total Creatine Kinase CK-MB (CK-2) Troponin I 0.03 02/25/19 02/25/19 02/25/19 10:30 12:29 15:18 WBC RBC Hgb Hct MCV MCH MCHC RDW Plt Count MPV Neut % (Auto) Lymph % (Auto) Mccreary % (Auto) Eos % (Auto) Baso % (Auto) Absolute Neuts (auto) Absolute Lymphs (auto) Absolute Monos (auto) Absolute Eos (auto) Absolute Basos (auto) Absolute Nucleated RBC Nucleated RBC % INR (Anticoag Therapy) APTT POC Activ Clotting Time 264 Sodium Potassium 4.7 Chloride Carbon Dioxide Anion Gap BUN Creatinine Est GFR ( Amer) Est GFR (Non-Af Amer) BUN/Creatinine Ratio Glucose Calcium Magnesium TNP 1.8 L Total Creatine Kinase 1066 H CK-MB (CK-2) 240.9 H Troponin I 15.12 H* 02/25/19 02/26/19 02/26/19 17:50 00:00 05:00 WBC RBC Hgb Hct MCV MCH MCHC RDW Plt Count MPV Neut % (Auto) Lymph % (Auto) Mccreary % (Auto) Eos % (Auto) Baso % (Auto) Absolute Neuts (auto) Absolute Lymphs (auto) Absolute Monos (auto) Absolute Eos (auto) Absolute Basos (auto) Absolute Nucleated RBC Nucleated RBC % INR (Anticoag Therapy) APTT POC Activ Clotting Time Sodium 137 Potassium 4.1 Chloride 112 H Carbon Dioxide 20 L Anion Gap 5 BUN 8 Creatinine 0.79 Est GFR ( Amer) 121.5 Est GFR (Non-Af Amer) 100.4 BUN/Creatinine Ratio 10.1 Glucose 99 Calcium 8.6 Magnesium 2.0 Total Creatine Kinase 1693 H 965 H CK-MB (CK-2) > 300.0 H 197.4 H Troponin I 60.27 H* 19.16 H* Diagnostic Imaging: [facility] 02/25/2019; report not dictated yet. He underwent successful PETE( 3.0x16mm Synergy) / Dominant Lcx. EKG Data: 02/26/2019; Sinus rhythm rate 71 Telemetry; sinus rhythm rate 80-90s with PVCs rare couplets, NSVT ( 4 beats) Assessment/Plan #1 Inferior STEMI 02/25/2019 s/p PETE 3.0x16mm PETE to dominant Lcx. Troponin peaked on 02/25/2019 at 60. He presented within hour of onset of symptoms. No recurrent chest pain. On ASA 81/day, Brilinta 90mg PO BID and Lipitor 80QHS. Manual SBP 110/78. Will discontinue Levophed. It appears automated machine was under assessing BP given manual was 110/78 and automated SBP was 83. Will re evaluate starting Lopressor depending on clinical course. Patient up and ambulating will likely transfer to telemetry this afternoon as long as clinically stable to do so. Will check echo 02/27/2019. #2 h/o HLD; goal LDL < 70. He reports non compliance with outpatient medications including Lipitor. Will update lipid panel. Continue Lipitor 80QHS. #3 h/o tobacco abuse. Continue Nicotine patch. He is interested in quitting thus , will need patch prescribed upon discharge. #4 h/o HTN; Historically on Toprol 25mg/day however, he has been non compliant with outpatient medications. Will re evaluate starting bblocker. It appears automated machine was under assessing BP given manual BP was 110/78 #5 disposition pending course. Will d/w Dr. Santamaria. Patient full code. Attending: Paula Santamaria <Paula Santamaria - Last Filed: 02/26/19 11:21> Medications Active Medications: Albuterol (Ventolin 2.5 Mg/3 Ml Neb.Chloé*) 2.5 mg INH Q6H PRN PRN Reason: SOB/WHEEZING Albuterol (Ventolin Hfa Inhaler*) 2 puff INH Q4HR PRN PRN Reason: SOB/WHEEZING Albuterol/Ipratropium (Duoneb (Albuterol 2.5 Mg/Ipratropium 0.5 Mg)) 1 neb INH RT.BID [facility]; Protocol Last Admin: 02/26/19 08:00 Dose: 1 neb Aspirin (Aspirin 81 Mg Chew Tab*) 81 mg PO DAILY [facility] Last Admin: 02/26/19 07:43 Dose: 81 mg Atorvastatin Calcium (Lipitor*) 80 mg PO 1700 [facility] Last Admin: 02/25/19 17:10 Dose: 80 mg Melatonin (Melatonin) 3 mg PO BEDTIME PRN PRN Reason: INSOMNIA Last Admin: 02/26/19 00:17 Dose: 3 mg Nicotine (Nicotine Patch 21 Mg/24 Hr*) 1 patch TRANSDERM DAILY [facility] Last Admin: 02/26/19 07:43 Dose: 1 patch Nitroglycerin (Nitroglycerin Tab 0.4 Mg*) 0.4 mg SL Q5M PRN PRN Reason: ANGINA Pharmacy Profile Note (Nicotine Patch Removal Note*) 1 note PATCH OFF 2100 [facility] Last Admin: 02/25/19 21:17 Dose: 1 note Ticagrelor (Brilinta*) 90 mg PO BID [facility] Last Admin: 02/26/19 07:43 Dose: 90 mg Objective Vital Signs: Temp Pulse Resp BP Pulse Ox 99.5 F 83 22 99/68 97 02/26/19 07:59 02/26/19 10:30 02/26/19 10:30 02/26/19 10:30 02/26/19 10:30 Laboratory Results: 02/25/19 10:12 02/26/19 05:00 INR (Anticoag Therapy) 0.91 (0.82-1.09) 02/25/19 10:12 APTT 44.8 seconds (26.0-38.0) H 02/25/19 10:12 CK-MB (CK-2) 197.4 ng/mL (0.6-6.3) H 02/26/19 00:00 Triglycerides 93 mg/dL 02/26/19 05:00 Cholesterol 120 mg/dL 02/26/19 05:00 LDL Cholesterol 69 mg/dL 02/26/19 05:00 HDL Cholesterol 32.6 mg/dL 02/26/19 05:00 02/25/19 02/25/19 02/25/19 10:12 12:29 17:50 Troponin I 0.03 15.12 H* 60.27 H* 02/26/19 00:00 Troponin I 19.16 H* Assessment/Plan As above, but will hold on ECHO as had preserved EF on LV gram.
[2019-02-26 09:45] LABS: HDL Cholesterol 32.6 mg/dL
[2019-02-26] MEDS: Atorvastatin* 80 MG TAB PO SCH (16:57)
[2019-02-26] MEDS: Nicotine Patch Removal NOTE PATCH OFF SCH (21:30)
[2019-02-27] MEDS: Albuterol/Ipratropium NEB.SOL* Albuterol 2.5 MG/Ipratropium 0.5 MG 3 ML INH SCH ×2 (08:11→20:51)
[2019-02-27] MEDS: Aspirin 81 mg CHEW TAB* 81 MG TAB.CHEW PO SCH (09:27)
[2019-02-27] MEDS: Nicotine PATCH 21 MG/24 HR* PATCH TRANSDERM SCH (09:27)
[2019-02-27] MEDS: Ticagrelor* 90 MG TAB PO SCH ×2 (09:28→20:47)
--- NOTE | 2019-02-27 09:37 | PN ---
Subjective Date of Service: 02/27/19 - s/p Inferior STEMi with PCI to dominant Lcx Interval History: No recurrent chest pain since intervention to dominant Lcx on 02/26/2019. Offers no complaints. Denies SOB, palpitations, sensation of heart racing. edema. Has been up and ambulating. He reports his roommate kept him up all night talking to himself otherwise offers no complaints. Medications Active Medications: Albuterol (Ventolin 2.5 Mg/3 Ml Neb.Chloé*) 2.5 mg INH Q6H PRN PRN Reason: SOB/WHEEZING Last Admin: 02/26/19 23:22 Dose: 2.5 mg Albuterol (Ventolin Hfa Inhaler*) 2 puff INH Q4HR PRN PRN Reason: SOB/WHEEZING Albuterol/Ipratropium (Duoneb (Albuterol 2.5 Mg/Ipratropium 0.5 Mg)) 1 neb INH RT.BID [facility]; Protocol Last Admin: 02/27/19 08:11 Dose: 1 neb Aspirin (Aspirin 81 Mg Chew Tab*) 81 mg PO DAILY [facility] Last Admin: 02/27/19 09:27 Dose: 81 mg Atorvastatin Calcium (Lipitor*) 80 mg PO 1700 [facility] Last Admin: 02/26/19 16:57 Dose: 80 mg Melatonin (Melatonin) 3 mg PO BEDTIME PRN PRN Reason: INSOMNIA Last Admin: 02/26/19 00:17 Dose: 3 mg Nicotine (Nicotine Patch 21 Mg/24 Hr*) 1 patch TRANSDERM DAILY [facility] Last Admin: 02/27/19 09:27 Dose: 1 patch Nitroglycerin (Nitroglycerin Tab 0.4 Mg*) 0.4 mg SL Q5M PRN PRN Reason: ANGINA Pharmacy Profile Note (Nicotine Patch Removal Note*) 1 note PATCH OFF 2100 [facility] Last Admin: 02/26/19 21:30 Dose: 1 note Ticagrelor (Brilinta*) 90 mg PO BID [facility] Last Admin: 02/27/19 09:28 Dose: 90 mg Objective Vital Signs: Temp Pulse Resp BP Pulse Ox 97.9 F 86 18 97/60 99 02/27/19 07:37 02/27/19 08:12 02/27/19 08:12 02/27/19 07:37 02/27/19 08:12 Oxygen Devices in Use Now: None Appearance: sitting upright in bed, NAD, A+ O X3 Ears/Nose/Mouth/Throat: NL Teeth, Lips, Gums, Clear Oropharnyx, Mucous Membranes Moist Neck: NL Appearance and Movements; NL JVP, Trachea Midline Respiratory: Symmetrical Chest Expansion and Respiratory Effort, Clear to Auscultation Cardiovascular: - - Normal S1, S2. RRR no murmur, gallop or rub. Abdominal: NL Sounds; No Tenderness; No Distention, No Hepatosplenomegaly Extremities: No Edema, - - right radial access site is intact, non tender with palpation, no palpable thrill, no hematoma. 3+ right radial pulse. Neurological: Alert and Oriented x 3 Lines/Tubes/Other Access: Clean, Dry and Intact Peripheral IV Laboratory Results: 02/25/19 10:12 02/26/19 05:00 INR (Anticoag Therapy) 0.91 (0.82-1.09) 02/25/19 10:12 APTT 44.8 seconds (26.0-38.0) H 02/25/19 10:12 CK-MB (CK-2) 197.4 ng/mL (0.6-6.3) H 02/26/19 00:00 Triglycerides 93 mg/dL 02/26/19 05:00 Cholesterol 120 mg/dL 02/26/19 05:00 LDL Cholesterol 69 mg/dL 02/26/19 05:00 HDL Cholesterol 32.6 mg/dL 02/26/19 05:00 02/25/19 02/25/19 02/25/19 10:12 12:29 17:50 Troponin I 0.03 15.12 H* 60.27 H* 02/26/19 00:00 Troponin I 19.16 H* Laboratory Results - last 24 hr 02/26/19 05:00 Triglycerides 93 Cholesterol 120 LDL Cholesterol 69 HDL Cholesterol 32.6 Diagnostic Imaging: [facility] 02/25/2019; report not dictated yet. He underwent successful PETE( 3.0x16mm Synergy) / Dominant Lcx. EKG Data: 02/26/2019; Sinus rhythm rate 71 02/27/2019; Sinus rate 93 with new inferior TWI c/w recent PA. + PVCs Telemetry; sinus rhythm rate 80-90s with PVCs rare couplets, NSVT ( 4 beats) Assessment/Plan #1 s/p inferior STEMI underwent successful PETE/ dominant Lcx 02/25/2019. No recurrent c/o chest pain. Troponin peaked at 60 on 02/25/2019. today's ECG reviewed there are new inferior TWI c/w recent infarct. He is on ASA 81/day in combination with Brilinta 90mg Po BID. He will need uninterrupted DAPT x12 months given presentation was STEMI. He is tolerating Brilinta today now that he is drinking caffeine before taking medication. Not on bblocker due to hypotension. On Lipitor 80QHS. #2 Tachycardia; LVEF was normal on LV gram. He is not anemia. Denies ETOH use, is not withdrawing from bblocker therapy. Not clear as to why resting HR is 90- 110. Will update TFTs to r/o thyroid disease. He is afebrile and denies fever, chills, dysuria. Of note he has polycythemia noted on CBC he has a h/o COPD however, he appears otherwise well. #3 h/o HLD; On lipitor 80 QHS. LDL this admit 69 ( reflective of not being on statin prior) Will need repeat FLP/LFt in 6-8 weeks. #4 Disposition pending course. Will await TFTs.Patient full code. Attending: Paula Santamaria
[2019-02-27 10:30] LABS: TSH (Thyroid Stimulating Horm) 0.91 mcIU/mL (0.34-5.60)
[2019-02-27 10:32] LABS: Free T3 3.3 pg/mL (2.5-3.9)
[2019-02-27 10:35] LABS: Free T4 1.03 ng/dL (0.61-1.12)
[2019-02-27 11:33] LABS: ABS Eosinophils 0.1 10^3/ul (0-0.6); ABS Lymphocytes 1.6 10^3/ul (1.0-4.8); ABS Monocytes 0.8 10^3/ul (0-0.8); ABS Neutrophils 8.7 10^3/ul (1.5-7.7); Eosinophil % 0.5 %; Hematocrit 43 % (42-52); Hemoglobin 14.5 g/dL (14.0-18.0); Lymphocyte % 13.9 %; Mean Corpuscular HGB Conc 34 g/dL (31-36); Mean Corpuscular Hemoglobin 35 pg (27-31); Mean Corpuscular Volume 101 fL (80-94); Mean Platelet Volume 9.7 fL (7.4-10.4); Nucleated Red Blood Cells % 0.1; Platelet Count 156 10^3/uL (150-450); Red Cell Distribution Width 13 % (10-15); White Blood Count 11.2 10^3/uL (3.5-10.8)
[2019-02-27] MEDS ORDERED: Metoprolol Tartrate IV* 1 MG/ML 5 ML VIAL IV PRN (14:11)
[2019-02-27] MEDS ORDERED: NS 0.9% 500 ML* 500 ML IV ONE ×2 (14:27→14:58)
[2019-02-27] MEDS: Metoprolol Tartrate IV* 1 MG/ML 5 ML VIAL IV PRN ×2 (14:40→14:51)
--- NOTE | 2019-02-27 14:40 | DS ---
DISCHARGE SUMMARY: DATE OF ADMISSION: 02/25/19 TENTATIVE DATE OF DISCHARGE: Pending no complications, 02/28/19 ATTENDING PHYSICIAN: Dr. Palua Santamaria.* (DICTATED BY MAYE YANEZ NP) PRIMARY PHYSICIAN: SANDY King with [facility]. ADMITTING DIAGNOSES: 1. Acute inferior ST-segment elevation, status post drug eluting stent placement to dominant left circumflex, troponin peaked at 60.27 on 02/25/19. LVEF preserved on LV gram with left heart catheterization, on aspirin, Brilinta , and statin therapy, no beta-blockade therapy due to hypertension. Please note the patient will need uninterrupted dual antiplatelet therapy for 12 months ' time with presentation with ST-elevation myocardial infarction. 2. Hyperlipidemia, now on high intensity statin therapy, LDL this admit 69, will need repeat fasting lipid panel, liver function test in 6 to 8 week's time. 3. Hypertension with inappropriate tachycardia. Thyroid function was normal. The patient is not anemic, vitamin B12 testing was updated. LVEF is preserved, it could be secondary to above #1, would likely benefit from outpatient ambulatory monitoring. We will address in followup. 4. History of chronic obstructive pulmonary disease, on albuterol as needed. Recommend to follow up with PCP. PROCEDURES PERFORMED: The patient underwent left heart catheterization with Dr. Paula Santamaria on 02/25/19. At this time, left catheterization report has not been transcribed, however, he underwent successful drug eluting stent placement to dominant left circumflex. For further information, please review dictated report. COMPLICATIONS: None thus far. 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 This occurred while at work. He had his colleagues called 911. [place] [facility]-segment elevation in inferior leads with reciprocal changes in anterior leads. A code heart was called and the patient was evaluated emergently. While in the emergency department, decision was made to take the patient urgently to [facility] where he underwent successful drug-eluting stent placement to left circumflex. Post procedure, he was transferred to the ICU where he was monitored on telemetry. The patient did develop hypotension postoperatively, which was treated with temporary period of Levophed therapy, which was discontinued on 02/26/19. He was asymptomatic. Systolic blood pressures have been ranging between 86 and 100. Again, he is not symptomatic. Decision was made to discontinue beta-blockade therapy due to hypotension. He has been manifesting inappropriate tachycardia, thyroid function disease is ruled out. LVEF was preserved on LV gram. He is not anemic. Low clinical suspicion for PE. The patient has been maintained on dual antiplatelet therapy with aspirin 81 mg a day in combination with Brilinta 90 mg p.o. b.i.d. He has not manifested any bleeding complications. Right radial access site is intact. No evidence of hematoma or bleeding and has been nontender to palpation. The patient expressed interest in smoking cessation. He has been doing well with the transdermal nicotine patch, which we will continue upon discharge. He will need to follow up with his PCP closely for smoking cessation. Labs have remained stable. Troponin peaked at 60.27 on 02/25/19. LDL was 69 during this admission. Pending no complications, he should be discharged home tomorrow, 02/28/19. We will continue to monitor on telemetry. We will update vitamin B12 level. The patient would likely benefit from eventual outpatient ambulatory monitor. At this current time, inappropriate tachycardia could be due to acute RI. He states that he will be compliant with medications. He is aware of the importance of continuing dual antiplatelet therapy with no interruptions for 12 months' time. He is aware of the risk of acute instant thrombosis should he decide to be noncompliant with antiplatelet therapy, again he expressed interest and desire to be compliant with not only medications but followup at this time. OUTPATIENT LABS TO BE PERFORMED: The patient will need fasting lipid panel with liver function tests in 6 to 8 week's time. I will personally place orders through outpatient [facility] system. FOLLOWUP APPOINTMENTS: The patient will need to follow up with primary provider , Allison Warner, in 7 to 10 days. The patient will follow up with Cardiology in 7 to 10 days, appointment will be made prior to discharge from [facility]. DISCHARGE MEDICATIONS: Include: 1. Brilinta 90 mg p.o. b.i.d. 2. Sublingual nitroglycerin 0.4 mg sublingual q.5 minutes p.r.n. 3. Transdermal 21 mg/24-hour nicotine patch should be applied daily. 4. Atorvastatin 80 mg p.o. q.h.s. 5. Aspirin 81 mg a day. 6. Albuterol 2.5 mg/3 mL inhalation q.6 h. p.r.n. 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 He was advised to not drive until further directed by Cardiology. He is aware to not lift more than 5 to 10 pounds for 7 to 10 days. Referral for cardiac rehab was placed during this admission. He is aware to not soak right radial access wound and again not to lift more than 5 to 10 pounds until further directed. DISCHARGE DIET: Low-cholesterol, low-fat, heart-healthy diet. DISCHARGE CONDITION: At this current time, he is stable and would likely be discharged home pending no complications, 02/28/19. Dr. Paula Santamaria has personally seen and examined the patient and agrees with the above assessment and plan. MAYE YANEZ NP [id number]/[facility] #: [id number] ATTENDING PHYSICIAN'S ADDENDUM TO DISCHARGE SUMMARY: DISCHARGE SUMMARY: Subsequent to the interim discharge note of yesterday, he developed an episode of atrial flutter and atrial fibrillation with rapid ventricular response. After IV Lopressor 3 doses, he converted back to sinus rhythm. He was started on Eliquis 5 mg b.i.d., received 1 dose of subcu Lovenox. He has remained in sinus rhythm without any recurrence of SVT. He is ambulatory without chest pain or shortness of breath. He has no complaints today with stable vital signs. Exam is unremarkable. DISCHARGE MEDICATIONS: As of today include: 1. Nitroglycerin 0.4 sublingual p.r.n. 2. Brilinta 90 mg b.i.d. 3. Lipitor 80 mg daily. 4. Albuterol as before. 5. Eliquis 5 mg b.i.d. 6. Toprol-XL 50 mg daily. 7. Nicotine patch 21 mg every 24 hours. Followup is unchanged. Discharge instructions are otherwise unchanged. He has a wound check appointment with Dr. Souza in [place] next week. Paula Santamaria MD [id number]/[facility] #: [id number] MTDRoberto
[2019-02-27] MEDS ORDERED: Diltiazem IV push/loading dose 5 MG/ML 5 ML vial (25 mg) IV SLOW PU PRN (14:58)
--- NOTE | 2019-02-27 15:00 | PN ---
Hospitalist Progress Note Date of Service: 02/27/19 Called by floor nurse to assess pt tachycardia, in conjunction with Dr. Santamaria, pt now in fib with RVR, asymptomatic, BP 100/70 on initial presentation. Given 5mg IV Metoprolol IV x 3 q 5 min in conjunction with 1L NS bolus with spontaneous conversion Decision to offer anticoagulation per primary director of rehabilitative services.
[2019-02-27] MEDS: Enoxaparin(*) 60 MG/0.6 ML SYR SUBCUT SCH (15:44)
[2019-02-27] MEDS: Metoprolol Tartrate TAB* 25 MG PO SCH (17:30)
[2019-02-27] MEDS: Atorvastatin* 80 MG TAB PO SCH (17:30)
[2019-02-27] MEDS: Apixaban* 5 MG TAB PO SCH (20:47)
[2019-02-27] MEDS: Nicotine Patch Removal NOTE PATCH OFF SCH (20:48)
[2019-02-28] MEDS: Metoprolol Tartrate TAB* 25 MG PO SCH ×2 (02:08→09:45)
[2019-02-28] MEDS: Enoxaparin(*) 60 MG/0.6 ML SYR SUBCUT SCH (02:09)
[2019-02-28] MEDS: Albuterol/Ipratropium NEB.SOL* Albuterol 2.5 MG/Ipratropium 0.5 MG 3 ML INH SCH (07:44)
[2019-02-28] MEDS: Aspirin 81 mg CHEW TAB* 81 MG TAB.CHEW PO SCH (09:45)
[2019-02-28] MEDS: Nicotine PATCH 21 MG/24 HR* PATCH TRANSDERM SCH (09:45)
[2019-02-28] MEDS: Ticagrelor* 90 MG TAB PO SCH (09:46)
[2019-02-28] MEDS: Apixaban* 5 MG TAB PO SCH (09:46)
[2019-02-28 11:33] VITALS: BP 94/54
[2019-02-28] MEDS ORDERED: Metoprolol Succinate XL TAB* 50 MG PO SCH (12:00)
--- NOTE | 2019-02-28 13:00 | DS ---
ADDENDUM: DISCHARGE SUMMARY: Subsequent to the interim discharge note of yesterday, he developed an episode of atrial flutter and atrial fibrillation with rapid ventricular response. After IV Lopressor 3 doses, he converted back to sinus rhythm. He was started on Eliquis 5 mg b.i.d., received 1 dose of subcu Lovenox. He has remained in sinus rhythm without any recurrence of SVT. He is ambulatory without chest pain or shortness of breath. He has no complaints today with stable vital signs. Exam is unremarkable. DISCHARGE MEDICATIONS: As of today include: 1. Nitroglycerin 0.4 sublingual p.r.n. 2. Brilinta 90 mg b.i.d. 3. Lipitor 80 mg daily. 4. Albuterol as before. 5. Eliquis 5 mg b.i.d. 6. Toprol-XL 50 mg daily. 7. Nicotine patch 21 mg every 24 hours. Followup is unchanged. Discharge instructions are otherwise unchanged. He has a wound check appointment with Dr. Souza in [place] next week. [id number]/[facility] #: [id number] REZA
--- NOTE | 2019-03-02 11:38 | CATH ---
CC: SANDY Graham, [place]; Dr. Paula Santamaria * STENT REPORT: DATE OF PROCEDURE: 02/25/19 PRIMARY CARE PHYSICIAN: SANDY Graham, in [place]. PROCEDURES: Right radial artery access; bilateral selective coronary cineangiography; left heart catheterization; left ventriculography; stent placement circumflex, 3.0 x 16 Synergy drug-eluting stent; Pronto aspiration thrombectomy. HISTORY: A 58-year-old male presenting with acute inferior wall ST elevation infarct. PROCEDURE ACCESS: Right radial artery sheath 6F slender. MEDICATIONS: 1. Subcu lidocaine. 2. IV Versed. 3. IV fentanyl. 4. Heparin 300 units. 5. Nitroglycerin 300 mcg. 6. Verapamil 3 mg IA. 7. Brilinta 180 mg p.o. loading dose. 8. Heparin 4000 units IV. DIAGNOSTIC CATHETER: 5F TIG4. GUIDE: 6F VL 3.5 exchanged for a 6F Ikari left 3.5. THROMBECTOMY CATHETER: Pronto V4. WIRE: 14 BMW used to deploy a 3.0 x 16 Synergy drug-eluting stent mid circumflex, post dilated with a 3.0 X 15 NC Emerge to 18 atmospheres 40 seconds. He then received a total of 1000 mcg of IC Nipride as well as boluses of Levophed IV to support blood pressure. HEMODYNAMICS: LV 83/12-20, no aortic valve gradient on pullback. ANGIOGRAPHY: Left main: The left main is normal in size and length, has no stenosis. LAD: The LAD is large, extends past the apex, has minor luminal irregularity without significant stenosis, it supplies a moderate mid diagonal. Circumflex: The circumflex is dominant, large, with a large first marginal or ramus, shortly thereafter the circumflex is occluded. RCA: The RCA is moderate, not dominant, supplies RV branches, has no significant stenosis. After circumflex drug-eluting stent placement and high pressure post dilatation and IC Nipride, flow is LILIAN 3, there is a myocardial blush, there is no residual stenosis. Distal circumflex supplies a small and then a large posterolateral, ends with a moderate circumflex PDA. Distal circumflex has no significant stenosis. LV gram: LVEF 50% to 55%, there is mid inferior wall hypokinesis. There is mild mitral regurgitation. CONCLUSION: 1. Single vessel disease, circumflex, excellent angiographic result with drug- eluting stent placement. 2. Preserved LV systolic function with regional wall motion abnormality. 3. Unremarkable left-sided hemodynamics. 4. Successful right radial artery access. [id number]/[facility] #: [id number] REZA
== END 2019-02-28 13:00 | disposition home or self-care (01) | DRG 174 ==
LOC: ED 09:51 → CHICATH 09:55 → ICU 11:24 → MEDTELE 02-26 17:30
PROVIDERS: ADMIT Internal Medicine Cardiovascular Disease; ATTEND Internal Medicine Cardiovascular Disease
PROC: 02C03ZZ Extirpation of Matter from Coronary Artery, One Artery, Percutaneous Approach (ICD-10-PCS; 2019-02-25)
PROC: 4A023N7 Measurement of Cardiac Sampling and Pressure, Left Heart, Percutaneous Approach (ICD-10-PCS; 2019-02-25)
PROC: B2111ZZ Fluoroscopy of Multiple Coronary Arteries using Low Osmolar Contrast (ICD-10-PCS; 2019-02-25)
PROC: B2151ZZ Fluoroscopy of Left Heart using Low Osmolar Contrast (ICD-10-PCS; 2019-02-25)
PROC: 027034Z Dilation of Coronary Artery, One Artery with Drug-eluting Intraluminal Device, Percutaneous Approach (ICD-10-PCS; principal; 2019-02-25 10:00)
DX: I21.19 ST elevation (STEMI) myocardial infarction involving other coronary artery of inferior wall (principal); I48.92 Unspecified atrial flutter; I47.2 Ventricular tachycardia; G89.29 Other chronic pain; M54.9 Dorsalgia, unspecified; M10.9 Gout, unspecified; Z96.652 Presence of left artificial knee joint; F17.210 Nicotine dependence, cigarettes, uncomplicated; E78.5 Hyperlipidemia, unspecified; I10 Essential (primary) hypertension; D75.1 Secondary polycythemia; J44.9 Chronic obstructive pulmonary disease, unspecified; I48.91 Unspecified atrial fibrillation; I95.9 Hypotension, unspecified; Z79.02 Long term (current) use of antithrombotics/antiplatelets; Z79.82 Long term (current) use of aspirin; Z79.899 Other long term (current) drug therapy; Z91.14 Patient's other noncompliance with medication regimen; Z95.5 Presence of coronary angioplasty implant and graft; Z88.4 Allergy status to anesthetic agent
CPT/HCPCS: 36415; 80048; 80061; 82550; 82553; 82607; 83735; 84132; 84439; 84443; 84481; 84484; 85025; 85347; 85610; 85730; 87641; 93005; 94640; 96374; 99156; 99157; 99285; A9270-GY; C1725; C1757; C1769; C1876; C1887; C9606-LC; J1650; J3010; J3475; J3490

== ENCOUNTER 2019-05-10 08:07 | Emergency (ER) | payer OTHER ==
--- OUTSIDE RECORDS SUMMARY | 2019-05-10 08:14 | XMS REPORT | Continuity of Care Document ---
:1960 External Reference #:[id number] Demographics Address [address] [place] [address] Home Phone [phone] Mobile Phone [phone] Preferred Language en Marital Status Not or Evangelical Affiliation Unknown Race White Ethnic Group Not or Author Name Deborah Warner FNP Address [address] [place] [id number] Care Team Providers Name Role Phone Deborah Warner DRONE SOFTWARE DEVELOPMENT ENGINEER - Nurse Care Team Information Marketing Project Lead [phone] Practitioner [place] MD Care Team Information Marketing Project Lead [phone] Paul. Souza MD - Cardiovascular Care Team Information Marketing Project Lead [phone] Disease Problems Active Problems Provider Date Migraine without aura Deborah Warner FNP Onset: 07/01/2016 Note: Document: 12/30/15 - CT Brain Document: 01/06/16 - Followup: Headache Document: 06/08/16 - Consult Neurology Postconcussion syndrome Deborah Warner FNP Onset: 07/01/2016 Pure hypercholesterolemia Jasmin Roberts, ANP Onset: 08/01/2012 Backache Anjelica Knott FNP Onset: 10/14/2012 Chronic obstructive lung disease Anjelica Knott FNP Onset: 03/21/2012 Corns and callosities Deborah Warner FNP Onset: 03/29/2017 Tobacco user Deborah Warner FNP Onset: 04/09/2017 Sinus tachycardia Deborah Warnre FNP Onset: 12/04/2018 Note: Document: 11/28/18 - Consult Cardiology - Carleen Anglin Chronic ischemic heart disease Deborah Warner FNP Onset: 04/23/2019 Social History Type Date Description Comments Sex Unknown Cigarette Use Pack Years - 34 Tobacco Use Start: Unknown Current Cigarette Smoker 1 Pack Daily ETOH Use Denies alcohol use Recreational Drug Use Denies Drug Use Tobacco Use Start: 04/15/75 End: Patient is a former was smoking 1.5 PPD 02/25/19 smoker Smoking Status Reviewed: 04/23/19 Patient is a former was smoking 1.5 PPD smoker Allergies, Adverse Reactions, Alerts Active Allergies Reaction Severity Comments Date Lidocaine Severe 02/25/2018 Inactive Allergies NKDA 04/03/2010 Medications Active Medications SIG Qnty Indications Ordering Date Provider Proair HFA inhale two puffs 17gm J44.9 Clune, 01/06/2016 108(90Base) by mouth every 4 Saryferneel, mcg/Act Aerosol hours as needed DEVELOPER PROGRAMMER Combivent Respimat 1 inhalation twice 12gm Clune, a day Deborah, 20-100mcg/Act Aerosol DEVELOPER PROGRAMMER Icy Hot ue as needed Unknown 5% Patches Atorvastatin Calcium 1 by mouth every E78.2 Unknown day 80mg Tablets Metoprolol Succinate 1 by mouth every Unknown ER day 50mg Tablets ER 24HR Nitroglycerin Place One Tablet Unknown 0.4mg Under The Tongue Tablets Sub Every 5 Minutes For Up To 3 Doses as Needed Forchest Pain. If Chest Pain Still Persists Contact 911 Brilinta Take One Tablet By Unknown 90mg Tablets Mouth Twice A Day Nicotine apply 1 patch once 28units [facility], 21mg/24HR daily at 8am Deborah, Patches 24HR remove at 9pm DEVELOPER PROGRAMMER Bupropion one tablet by 180tabs [place], Hydrochloride ER (SR) mouth twice a day SANDY Cabrera 150mg Tablets ER 12HR History Medications Wellbutrin SR take one tablet 60tabs Deborah Warner, 11/25/2018 - 150mg by mouth once DEVELOPER PROGRAMMER 01/22/2019 Tablets ER 12HR daily for 3 days then increase to twice a day Immunizations CPT Code Status Date Vaccine Lot # [id number] Given 01/22/2019 Influenza Virus Vaccine, Quadrivalent, 36 Mos+, [id number] 72889 Given 01/23/2017 Influenza Virus Vaccine, Quadrivalent, Slit Virus, [id number] Im Use [id number] Given 01/23/2017 Pneumococcal Conjugate Vaccine 13 Valent For [id number] Intramuscular Use 10014 Given 12/23/2015 Influenza Virus Vaccine Split Virus Use For Individual 3Yr Older 85339 Given 11/09/2015 Pneumovax Injection [id number] Given 07/22/2013 Tdap injection Vital Signs Date Vital Result Comment 04/23/2019 2:22pm BP Systolic 114 mmHg BP Diastolic 78 mmHg Body Temperature 95.6 F Heart Rate 84 /min Respiratory Rate 18 /min Height 66.15 inches 5'6.15" Weight 153.00 lb BMI (Body Mass Index) 24.6 kg/m2 BSA (Body Surface Area) 1.79 m2 [place] body weight in kilograms 65 kg O2 % BldC Oximetry 98 % Ra 01/22/2019 3:25pm BP Systolic 116 mmHg BP Diastolic 68 mmHg Body Temperature 97.4 F Heart Rate 83 /min Respiratory Rate 17 /min Height 66.15 inches 5'6.15" Weight 150.25 lb BMI (Body Mass Index) 24.1 kg/m2 BSA (Body Surface Area) 1.77 m2 [place] body weight in kilograms 65 kg O2 % BldC Oximetry 92 % Results Test Acquired Date Facility Test Result H/L Range Note CBC Auto 02/25/2019 [facility] White Blood 12.3 10^3/ uL High 3.5-10.8 Diff [phone] Count Red Blood Count 5.29 10^6/uL Normal 4.18-5.48 Hemoglobin 18.2 g/dL High 14.0-18.0 Hematocrit 54 % High 42-52 Mean Corpuscular Volume 103 fL High 80-94 Mean Corpuscular Hemoglobin 34 pg High 27-31 Mean Corpuscular HGB Conc 34 g/dL Normal 31-36 Red Cell Distribution Width 14 % Normal 10-15 Platelet Count 194 10^3/uL Normal 150-450 Mean Platelet Volume 8.9 fL Normal 7.4-10.4 Abs Neutrophils 9.2 10^3/uL High 1.5-7.7 Abs Lymphocytes 2.1 10^3/uL Normal 1.0-4.8 Abs Monocytes 0.8 10^3/uL Normal 0-0.8 Abs Eosinophils 0.2 10^3/uL Normal 0-0.6 Abs Basophils 0.1 10^3/uL Normal 0-0.2 Abs Nucleated RBC 0.0 10^3/uL Granulocyte % 74.4 % Lymphocyte % 16.9 % Monocyte % 6.7 % Eosinophil % 1.3 % Basophil % 0.7 % Nucleated Red Blood Cells % 0.0 Inr/Protime 02/25/2019 [facility] Inr 0.91 Normal 0.82-1.09 4 [phone] Laboratory test 02/25/2019 [facility] Activated 44.8 High 26.0-38.0 finding [phone] Partial seconds Thrombo Time Basic Metabolic 02/25/2019 [facility] Sodium 134 mmol /L Low 135-145 Panel [phone] Chloride 106 mmol/L Normal 101-111 Co2 Carbon Dioxide 18 mmol/L Low 22-32 Calcium 10.0 mg/dL Normal 8.6-10.3 Glucose 103 mg/dL High 70-100 Blood Urea Nitrogen 10 mg/dL Normal 6-24 Creatinine 1.01 mg/dL Normal 0.67-1.17 BUN/Creatinine Ratio 9.9 Normal 8-20 Egfr Non- 75.6 >60 Egfr 91.5 >60 2 Potassium TNP mmol/L 3.5-5.0 3 Anion Gap 10 mmol/L Normal 2-11 Laboratory test 02/25/2019 [facility] Troponin-I (TnI ) 0.03 ng/mL <0.04 4 finding [phone] 1 Standard intensity warfarin therapeutic range: 2.0-3.0 High intensity warfarin therapeutic range: 2.5-3.5 2 Because ethnic data is not always readily available, this report includes an eGFR for both -Americans and non- Americans. The National Kidney Disease Education Program (NKDEP) does not endorse the use of the MDRD equation for patients that are not between the ages of 18 and 70, are , have extremes of body size, muscle mass, or nutritional status, or are non- or non-. According to the National Kidney Foundation, irrespective of diagnosis, the stage of the disease is based on the level of kidney function: Stage Description GFR(mL/min/1.73 m(2)) 1 Kidney damage with normal or decreased GFR 90 2 Kidney damage with mild decrease in GFR 60-89 3 Moderate decrease in GFR 30-59 4 Severe decrease in GFR 15-29 5 Kidney failure <15 (or dialysis) 3 Specimen Hemolyzed. Result may not be valid. Unable to report test result due to hemolysis. 4 Troponin-I testing on Plasma Separator Tubes (PST) has a known false positive rate of 0.20-0.40%. All positive troponins reflex immediately to secondary confirmatory testing. Using the [employer] Access Immunoassay systems, the 99th percentile upper reference limit was demonstrated to be < 0.03 ng/mL. Procedures Date Code Description Status 01/22/2019 03871 Cognitive Test By Healthcare Professional Completed 05/16/2016 19541341 Colonoscopy Completed Medical Devices Description No Information Available Encounters Type Date Location Provider Dx Diagnosis Office Visit 04/23/2019 [facility] Robyn Warner I25.5 Ischemic 2:[address] alice CabreraP R06.02 Shortness of breath E78.2 Mixed hyperlipidemia Z87.891 Personal history of nicotine dependence Office Visit 01/22/2019 [facility] G31.84 Mild cognitive 3:00[facility] [place] SANDY Cabrera impairment, so RD stated Z23 Encounter for immunization Assessments Date Code Description Provider 04/23/2019 I25.5 Ischemic cardiomyopathy Deborah Warner FNP 04/23/2019 R06.02 Shortness of breath Deborah Warner FNP 04/23/2019 E78.2 Mixed hyperlipidemia Deborah Warner FNP 04/23/2019 Z87.891 Personal history of nicotine dependence Deborah Warner FNP 01/22/2019 G31.84 Mild cognitive impairment, so stated Deborah Warner FNP 01/22/2019 Z23 Encounter for immunization Deborah Warner FNP Plan of Treatment 04/23/2019 - Deborah Warner FNPI25.5 Ischemic cardiomyopathyComments: appears to be stable but need to continue to modify activities to energy level. 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 congratulations on stopping smoking!continue Wellbutrin and patches - will continue nicotine patch at 21 mg for 1 more month then need to step down to 14. Functional Status Functional Condition Comment Date Status Independent with all ADL's Active Glasses Active Independent with all IADL's Active Mental Status Description No Information Available Referrals Refer to Dr Reason for Referral Status Appt Date Jeanna Hope, DO concern for developing dementia - strong family Sent 05/2019 Hx w/PGF, Father and paternal uncle all with alzheimers in their mid to late 60's [address] [facility] [facility] [facility] [place], [place] [address] [phone] Anton Salazar concern for developing dementia - strong family Hx w/PGF, Sent Father and paternal uncle all with alzheimers in their mid to late 60's. [address] [facility] [place] [address] [place] [address] [phone]
[2019-05-10 08:18] VITALS: BP 105/72
--- NOTE | 2019-05-10 08:31 | UC ---
Lower Extremity/Ankle HPI - HPI Summary HPI Summary: Noticed right ankle swelling and redness yesterday. Worsening pain, especially when bearing weight. Denies history of gout. - History of Current Complaint Chief Complaint: UCLowerExtremity Stated Complaint: RIGHT ANKLE PAIN Time Seen by Provider: 05/10/19 08:10 Hx Obtained From: Patient Onset/Duration: Sudden Onset, Lasting Days Severity Initially: Severe Severity Currently: Severe Pain Intensity: 8 Aggravating Factor(s): Standing, Ambulation Able to Bear Weight: Yes - but painful - Allergies/Home Medications Allergies/Adverse Reactions: Allergies Allergy/AdvReac Type Severity Reaction Status Date / Time No Known Allergies Allergy Verified 05/10/19 08:16 Home Medications: Home Medications buPROPion HCl [Bupropion HCl Xl] 150 mg PO BID 05/10/19 [History Confirmed 05/10] PMH/Surg Hx/FS Hx/Imm Hx Other History Of: Anticoagulant Therapy - remote plavix - Surgical History Surgical History: Yes Surgery Procedure, Year, and Place: CARDIAC STENT-2001, 2018. LEFT TOTAL KNEE REPLACEMENT. CHOLECYSTECTOMY - Family History Known Family History: Negative: Diabetes - Social History Alcohol Use: None Substance Use Type: None Smoking Status (MU): Heavy Every Day Tobacco Smoker Type: Cigarettes Amount Used/How Often: 1.5 PPD Length of Time of Smoking/Using Tobacco: 42 YRS Have You Smoked in the Last Year: Yes When Did the Patient Quit Smoking/Using Tobacco: 02/25/19 Household Exposure Type: Cigarettes - Immunization History Most Recent Influenza Vaccination: 12/2018 Most Recent Pneumonia Vaccination: 12/2018 Review of Systems All Other Systems Reviewed And Are Negative: Yes Musculoskeletal: Positive: Arthralgia, Myalgia Physical Exam Triage Information Reviewed: Yes Appearance: Well-Appearing, Well-Nourished, Pain Distress Vital Signs: Initial Vital Signs Temp 98.1 F 05/10/19 08:16 Pulse 86 05/10/19 08:16 Resp 15 05/10/19 08:16 BP 105/72 05/10/19 08:16 Pulse Ox 99 05/10/19 08:16 Vital Signs Reviewed: Yes Eye Exam: Normal ENT Exam: Normal Dental Exam: Normal Respiratory Exam: Normal Cardiovascular Exam: Normal Abdominal Exam: Normal Musculoskeletal: Positive: Strength Intact, No Edema, ROM Limited @, Other: - erythema of the medial maleolus Neurological Exam: Normal Psychological Exam: Normal Skin Exam: Normal Lower Extremity Course/Dx - Course Course Of Treatment: hx obtained, exam performed, meds reviewed,xray obtained, treated for possible gout and cellulitis - Differential Dx/Diagnosis Differential Diagnosis/HQI/PQRI: Cellulitis, Gout Provider Diagnosis: Cellulitis, Erythema Discharge ED - Sign-Out/Discharge Documenting (check all that apply): Patient Departure All imaging exams completed and their final reports reviewed: No Studies - Discharge Plan Condition: Stable Disposition: HOME Patient Education Materials: Arthralgia (ED) Referrals: Allison Warner NP [Primary Care Provider] - Additional Instructions: 1. I am treating you for possible gout or cellulitis 2. Take the medication as prescribed. 3. If you are not noticing any improvement in the next 3-4 days follow up 4. warm water soaks daily, 5. If it is the start of a gout flare, i have included a low purine diet to follow to help resolve the issue. - Billing Disposition and Condition Condition: STABLE Disposition: Home
== END 2019-05-10 09:15 | disposition home or self-care (01) ==
LOC: UCCORT 08:07
DX: L03.115 Cellulitis of right lower limb (principal); L53.9 Erythematous condition, unspecified; Z95.818 Presence of other cardiac implants and grafts
CPT/HCPCS: 99212; G0463